=== PATIENT | female | born 1990 | race Caucasian/White ===

== ENCOUNTER 2022-12-06 10:41 | Outpatient (CLI) | payer BC, MEDICAID, SELFPAY ==
--- NOTE | 2022-12-06 11:00 | CRLHL7_ITS ---
For Patients: As a result of the Cures Act, medical imaging exams and procedure reports are released immediately into your electronic medical record. You may view this report before your referring provider. If you have questions, please contact your health care provider. INDICATION: First trimester scan, establish dates. COMPARISON: None. TECHNIQUE: Real-time lai-scale imaging of the pelvis was performed. FINDINGS: Sonographic imaging demonstrates a single living intrauterine gestation. The embryo demonstrates a regular cardiac rate measuring 163 beats per minute. The embryo`s crown-rump length measurement of 1.9 cm corresponds to a gestational age of 8 weeks 3 days with a sonographic due date of 07/15/2023. There is a normal-appearing yolk sac. There are no gross abnormalities noted within the embryo at this early state of development. The gestational sac has a normal appearance. There is no evidence of a perigestational hemorrhage. The amount of fluid within the sac appears appropriate for gestational age. The cervix is closed. The myometrium appears normal. Normal right ovary. Left ovary not visualized. There are no suspicious fluid collections noted in the cul-de-sac. IMPRESSION: Single living intrauterine with sonographic gestational age 8 weeks 3 days and sonographic due date 07/15/2023. Dictated by Calixto Horowitz MD @ 12/06/2022 12:32:38 PM (Electronically Signed)
== END 2022-12-06 10:42 | disposition home or self-care (01) ==
PROVIDERS: PCP Family Medicine; Visit Provider Registered Nurse
DX: Z34.91 Encounter for supervision of normal pregnancy, unspecified, first trimester (principal); Z3A.08 8 weeks gestation of pregnancy
CPT/HCPCS: 76817; 86592; 86703; 86762; 86787; 86803; 86850; 86900; 86901; 87086; 87340; 87491; 87591

== ENCOUNTER 2022-12-06 11:44 | Outpatient (CLI) | payer BC, MEDICAID, SELFPAY ==
[2022-12-06 16:54] LABS: Chlamydia DNA Amplified* NOT DETECTED (No Detected); GC DNA Amplified* NOT DETECTED (No Detected)
== END 2022-12-06 11:45 | disposition home or self-care (01) ==
PROVIDERS: PCP Family Medicine; Visit Provider Registered Nurse
DX: Z34.91 Encounter for supervision of normal pregnancy, unspecified, first trimester (principal); Z3A.08 8 weeks gestation of pregnancy
CPT/HCPCS: 86592; 86703; 86762; 86787; 86803; 86850; 86900; 86901; 87086; 87340; 87491; 87591

== ENCOUNTER 2023-02-27 12:19 | Outpatient (CLI) | payer BC, MEDICAID, SELFPAY ==
--- NOTE | 2023-02-27 12:15 | CRLHL7_ITS ---
For Patients: As a result of the Century Cures Act, medical imaging exams and procedure reports are released immediately into your electronic medical record. You may view this report before your referring provider. If you have questions, please contact your health care provider. INDICATION: Evaluate anatomy. COMPARISON: 12/06/2022 TECHNIQUE: Real time lai scale imaging of the fetus was performed as well as color Doppler analysis of the umbilical vessels. FINDINGS: Sonographic imaging demonstrates a single living intrauterine gestation. Fetus demonstrates a regular cardiac rate of 133 beats per minute. Fetus has a variable position. The placenta lies anteriorly without evidence of placenta previa. The edge of the placenta is located 6.8 cm from the internal cervical os. Amniotic fluid volume appears normal. Single deepest vertical pocket: 4.2 cm. The cervix is closed and measures 4.3 cm in length. The composite ultrasound gestational age is calculated at 20 weeks 1 day with an estimated sonographic due date of 07/16/2023. The estimated weight is 337 grams which lies at the 39th %. The following biometric measurements were obtained: Biparietal diameter: 4.5 cm/19 weeks 5 days 27th% Head circumference: 17.1 cm/19 weeks 5 days 18th% Abdominal circumference: 15.7 cm/20 weeks 6 days 62nd% Femur length: 3.1 cm/19 weeks 4 days 19th% The HC/AC ratio measures: 1.09 range (1.07-1.25) On anatomic survey, there is a normal appearance of the cerebral ventricles, cavum septi pellucidi, cisterna magna and cerebellum. The nose, lips, and facial profile appear normal. The cervical, thoracic and lumbar spine are well visualized and appear normal. There is a normal four-chamber heart view and the left and right ventricular outflow tracts appear normal. The diaphragm and stomach appear normal. The kidneys and bladder also appear normal. There is a normal three-vessel cord and cord insertion site. The four extremities appear normal. IMPRESSION: Normal OB ultrasound exam with concordance of clinical and sonographic dating. No intrinsic abnormalities noted on anatomic survey. Dictated by Calixto Horowitz MD @ 02/28/2023 5:58:50 AM (Electronically Signed)
== END 2023-02-27 12:20 | disposition home or self-care (01) ==
LOC: US 12:19
PROVIDERS: PCP Family Medicine; Visit Provider Obstetrics & Gynecology
DX: Z34.92 Encounter for supervision of normal pregnancy, unspecified, second trimester (principal); Z3A.20 20 weeks gestation of pregnancy
CPT/HCPCS: 76805

== ENCOUNTER 2023-03-08 09:49 | Outpatient (CLI) | payer BC, MEDICAID, SELFPAY | END 2023-03-08 09:50 | disposition home or self-care (01) | LOC: NFLDREF 12:20 | PROVIDERS: PCP Family Medicine; Referring Provider Family Medicine; Visit Provider Obstetrics & Gynecology | DX: O14.92 Unspecified pre-eclampsia, second trimester (principal) | CPT/HCPCS: 82565; 82570; 84156; 84450; 84460; 84520; 84550 ==

== ENCOUNTER 2023-04-28 10:46 | Outpatient (CLI) | payer BC, MEDICAID, SELFPAY | END 2023-04-28 10:47 | disposition home or self-care (01) | LOC: NFLDREF 05-05 10:25 | PROVIDERS: PCP Family Medicine; Referring Provider Family Medicine; Visit Provider Obstetrics & Gynecology | DX: Z34.90 Encounter for supervision of normal pregnancy, unspecified, unspecified trimester (principal) | CPT/HCPCS: 86592 ==

== ENCOUNTER 2023-06-30 09:31 | Outpatient (CLI) | payer BC, SELFPAY | END 2023-06-30 09:32 | disposition home or self-care (01) | LOC: NFLDREF 07-03 09:16 | PROVIDERS: PCP Family Medicine; Referring Provider Family Medicine; Visit Provider Obstetrics & Gynecology | DX: O99.013 Anemia complicating pregnancy, third trimester (principal); Z36.85 Encounter for antenatal screening for Streptococcus B; Z3A.37 37 weeks gestation of pregnancy | CPT/HCPCS: 87081; 87653 ==

== ENCOUNTER 2023-07-19 21:12 | Inpatient (IN) | payer BC, SELFPAY ==
[2023-07-19] VITALS (35 sets, daily range): BP systolic 96–127; BP diastolic 53–73; PULSE 63–98; RESP 16; TEMP 36.3–36.7; O2SAT 97–100; BMI 29.4
[2023-07-19] MEDS: LACTATED RINGERS 1000 ML 1,000 ML 999 ML IV (21:40)
[2023-07-19 21:42] LABS: Basophils Absolute Auto 0.03 K/uL (0.00-0.30); Basophils Percent Auto 0.3 % (0.0-3.0); Eosinophils Absolute Auto 0.03 K/uL (0.00-0.50); Eosinophils Percent Auto 0.3 % (0.0-7.0); Hematocrit 35.2 % (33.0-51.0); Immature Granulocytes Abs Auto 0.05 K/uL (0.00-0.30); Immature Granulocytes Pct Auto 0.5 %; Lymphocytes Absolute Auto 2.56 K/uL (0.90-2.90); Lymphocytes Percent Auto 24.8 % (20-44); Mean Corpuscular HGB Conc 34 gm/dL (32-36); Mean Corpuscular Hemoglobin 31 pg (26-34); Mean Corpuscular Volume 89 fL (80-100); Monocytes Percent Auto 8.1 % (0.0-11.0); Neutrophils Absolute Auto 6.81 K/uL (1.7-7.0); Platelet Count* 250 K/uL (140-440); RDW Coefficient of Variation % 12.6 % (11.5-15.5); Red Blood Count 3.94 m/uL (4.00-5.20); White Blood Count* 10.32 K/uL (4.50-11.00)
[2023-07-19 21:46] LABS: Slide Review Reflex No
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
[2023-07-19] MEDS: ROPIVACAINE 0.2% 100 ml 100 ML 11 MG EPIDURAL (22:31)
[2023-07-19] MEDS: LIDOCAINE 2% (PF) 5 ML VIAL EPIDURAL (22:33)
--- NOTE | 2023-07-19 22:44 | PM.ANBPRC ---
[facility] Medical History History of vaginal delivery Surgical History History of third molar tooth extraction ?K08.409 - Partial loss of teeth, unspecified cause, unspecified class (ICD-10) History of appendectomy (2011) ?Z90.49 - Acquired absence of other specified parts of digestive tract (ICD-10) Family History Brother Asthma Diabetes Depression Mental disorder Grandmother Diabetes Family/Other Diabetes Mother Depression Mental disorder Father Alcohol dependence Drug dependence Social History Narrative: , 3 kids, homemaker Non -smoker quit 2016,hx 6 pack years Rarely consumes alcohol Smoking Status: Former smoker Little interest or pleasure in doing things: more than half the days Feeling down, depressed, or hopeless: more than half the days Meds Home Medications and Allergies Home Medications Medication Instructions Recorded Confirmed Type docosahexaenoic acid 200 mg mg PO 12/06/22 07/14/23 History capsule ( DHA) fluoxetine 10 mg capsule 20 mg PO DAILY 06/13/23 07/19/23 History Allergies Allergy/AdvReac Type Severity Reaction Status Date / Time No Known Drug Allergies Allergy Verified 07/14/23 12:57 Results Labs Labs: Laboratory Results - last 24 hr 07/19/23 21:35 WBC 10.32 RBC 3.94 L Hgb 12.0 Hct 35.2 MCV 89 MCH 31 MCHC 34 RDW Coeff of Theo 12.6 Plt Count 250 Neut % (Auto) 66.0 Lymph % (Auto) 24.8 [place] % (Auto) 8.1 Eos % (Auto) 0.3 Baso % (Auto) 0.3 Neut # (Auto) 6.81 Lymph # (Auto) 2.56 [place] # (Auto) 0.80 Eos # (Auto) 0.03 Baso # (Auto) 0.03 Abs Immat Gran (auto) 0.05 Imm/Tot Granulo (auto) 0.5 Vital Signs Vital Signs: Last Vital Signs Temp 97.3 F L 07/19/23 22:40 Pulse 76 07/19/23 22:44 Resp 16 07/19/23 22:40 BP 105/56 L 07/19/23 22:44 Pulse Ox 98 07/19/23 22:28 Anesthesia Procedures Epidural Insertion Patient Location: OB Start Time: 22:00 Stop Time: 22:30 Start Date: 07/19/23 Stop Date: 07/19/23 Reason for Block: procedure for pain Patient Position: sitting Performed By: Reese Romano Preanesthetic Checklist: IV checked, risks and benefits discussed, monitors and equipment checked, pre-op evaluation, timeout performed and anesthesia consent Prep: chlorhexidine gluconate Monitoring: blood pressure monitoring, continuous pulse oximetry and heart rate Approach: midline Vertebral Space: lumbar (1-5) Epidural Technique: VINH saline Needle Type: Tuohy needle Injection Technique: continuous catheter Needle gauge: 17 Needle Length (cm): 10 cm Needle Insertion Depth (cm): 6 Catheter Gauge: 19 Catheter Type: multi-orifice Catheter at skin depth (cm): 12 Test Dose Result: negative and lidocaine 1.5% with epinephrine 1 to 200,000
[2023-07-19] MEDS: ONDANSETRON 2 MG/ML inj 4 MG IV (23:25)
[2023-07-19] MEDS: fentaNYL 100 MCG/2 ML inj EPIDURAL (23:47)
[2023-07-20] VITALS (20 sets, daily range): BP systolic 91–120; BP diastolic 11–78; PULSE 64–84; RESP 16; TEMP 36.6–36.9; O2SAT 96
[2023-07-20] MEDS: LACTATED RINGERS 1000 ML 1,000 ML 999 ML IV (01:00)
[2023-07-20] MEDS: OXYTOCIN 30 unit/500 ML in NS 30 UNIT/500 ML BAG 300 UNIT IVPB (01:05)
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
[2023-07-20] MEDS: IBUPROFEN 600 MG TABLET PO ×3 (04:17→20:22)
--- NOTE | 2023-07-20 12:50 | PM.ANPOST ---
Post Anesthesia Note Post Anesthesia Note Patient seen: Inpatient Respiratory Status: adequate Cardiovascular Status: adequate Mental Status: baseline Pain: adequate Temp: baseline Anesthetic awareness: N/A Complications: none Follow care: none
[2023-07-20] MEDS: LANOLIN CREAM 1 APPLIC TOPICAL (23:15)
[2023-07-21 06:40] LABS: Hemoglobin* 10.8 gm/dL (12.0-16.0)
[2023-07-21 09:05] VITALS: BP 112/76; PULSE 67; RESP 16; TEMP 36.5
[2023-07-21] MEDS: IBUPROFEN 600 MG TABLET PO (09:13)
--- NOTE | 2023-07-21 11:40 | P.DS_ITS ---
DS: Providers Provider Date Seen: 07/21/23 Date of admission: 07/19/23 21:12 Primary care physician: Jes Chew MD Admitting Clinician: Lydia Alfonso MD Attending Physician on discharge: Bianca Blanton APRN, AZALIAM DS: Diagnosis Discharge Diagnosis (1) care and examination immediately after delivery: Status: Acute (2) Lactating mother: Status: Acute Exam Narrative: Exam Narrative: GENERAL APPEARANCE:? normal affect, alert, no distress MOOD:? appropriate CHEST:? clear to auscultation HEART:? regular rate and rhythm ABDOMEN:? soft, non-tender the uterine fundus is At Umbilicus, Midline and is appropriate for the stage of recovery. PERINEUM:? mild edema of the perineum. EXTREMITIES:? normal and no edema Const: Vital Signs, click to edit/add: Vital Signs - 24 hr 07/20/23 14:51 07/20/23 18:30 07/20/23 22:51 Temperature 98.0 F 98.0 F Pulse Rate [Left P ulse Oximeter] 64 68 67 Respiratory Rate 16 16 16 Blood Pressure [Ri ght Arm] 112/73 110/68 93/54 L Pulse Oximetry 96 96 Oxygen Delivery Me thod Room Air Room Air Room Air 07/21/23 09:05 Temperature 97.7 F Pulse Rate [Left P ulse Oximeter] 67 Respiratory Rate 16 Blood Pressure [Ri ght Arm] 112/76 Pulse Oximetry Oxygen Delivery Me thod Documenting provider has reviewed patient's vital signs: yes OB - DS: Summary Hospital Course Hospital Course: Luciana is a 32 y.o. G 5 P 4014 who was admitted to [facility] for spontaneous onset of labor. ?She had a VAVD that was uncomplicated. The patient feels well. ?The pain is well controlled with current medications. ?She has no new complaints. ?She is breast feeding and reports things are going well. the patient has done well.? Vitals have been stable.? She has remained afebrile.? Has a good appetite, is tolerating a general diet. ?She is voiding without difficulty.? She is passing gas and has not had a bowel movement.? She is ambulating and denies any dizziness.? Has small amount of rubra lochia. Problems: none plan: Discharge home with baby. Follow up in 2 weeks and 6 weeks. , may see if needed Hgb 10.8. May continue iron supplement . Peripartum Data Infant delivery method: Vaginal Laceration description: None complications: none [place] Infant Gender: Female Discharge Plan: Home Status at Discharge Functional status at discharge: independent ambulation Overall status at discharge: patient is progressing back to baseline Time Spent with Patient Time attestation: Total time spent providing and/or coordinating discharge services: Time spent: Less than 30 minutes Discharge Plan Discharge Disposition: Home, Self-Care Date of Admission: 07/19/23 21:12 Attending Provider on Discharge: Bianca Blanton Primary Care Provider: Jes Chew Condition: Stable Anticipated Discharge Date/Time: 07/21/23 12:00 Discharge Medications: New docusate sodium 100 mg Capsule 100 mg PO DAILY Qty: 90 0RF ibuprofen 600 mg Tablet 600 mg PO Q6H PRNQty: 60 0RF acetaminophen 500 mg Tablet 1,000 mg PO Q6H PRNQty: 0 0RF Continued valacyclovir 500 mg tablet 500 mg PO QDAY Qty: 90 4RF DHA 200 mg capsule 200 mg PO DAILY ferrous sulfate 325 mg (65 mg iron) tablet 325 mg PO QDAY Qty: 90 1RF fluoxetine 10 mg capsule 20 mg PO DAILY Discontinued ondansetron 4 mg tablet,disintegrating 4 mg PO Q6H PRN (Reason: nausea and vomiting) Qty: 30 1RF Discharge Orders: Discharge Order (Routine); Ordered 07/21/23 Ordered By: Bianca Blanton Patient Education: OB Over the Counter Medication Information, OB Vaginal/Breast Feeding Additional Instructions: Discharge instructions were reviewed with the patient including signs and symptoms of infection and home going medications Nothing vaginally for 6 weeks: no tampons or intercourse Off Work or School for 6 weeks 2-week visit: discuss feeding concerns, review control options and screen for anxiety/depression. 6-week visit for an annual exam. consultation services are available to all mothers and babies for the first year after delivery.? To make an appointment, please call [phone]. Activity Level: Activity as Tolerated Discharge Diet: Regular Follow Up Appointments: [facility] [Provider Group] (Has follow-up scheduled for mental health as well.) Forms: [employer] Info Instructions
== END 2023-07-21 12:07 | disposition home or self-care (01) | DRG 560 ==
LOC: OB OUT 21:12 → OB 21:12
PROVIDERS: Admitting Provider Obstetrics & Gynecology; PCP Family Medicine; Visit Provider Obstetrics & Gynecology
DX: O99.344 Other mental disorders complicating childbirth (principal); F32.A Depression, unspecified; F60.3 Borderline personality disorder; F41.9 Anxiety disorder, unspecified; O76 Abnormality in fetal heart rate and rhythm complicating labor and delivery; R03.0 Elevated blood-pressure reading, without diagnosis of hypertension; O99.02 Anemia complicating childbirth; D64.9 Anemia, unspecified; Z3A.40 40 weeks gestation of pregnancy; Z37.0 Single live birth
CPT/HCPCS: 01967; 36415; 85018; 85025; 86850; 86900; 86901; A9270; J2371; J2405; J2795; J3010; J7120